=== PATIENT | female | born 1945 | race African-American/Black ===

== ENCOUNTER 2016-07-14 09:52 | Emergency (ER) | payer OTHER ==
[~2016-07-14] VITALS: Ht 160 cm; Wt 76.2 kg
--- NOTE | ~2016-07-14 | EKG ---
[place] [address] [facility] [place] [address] ELECTROCARDIOGRAM REPORT Name: CHELSI KRISHNAN #: DEP NIKI Stevenson#: [id number] Admission: 07/14/16 Attend Phys: Discharge: 07/14/16 Date of : 41 Report #: [id number] THIS REPORT FOR: //name// [facility] ED Test Date: 2016-07-14 Test Time: 10:06:51 Pat Name: CHELSI MAE Department: Room: Gender: F Buildings And Grounds Director: DACIA : 1945 Requested By: Lori Meyers Order Number: [id number] MD: Valdemar Godinez Measurements Intervals [place] Rate: 71 P: 53 RI: 174 QRS: 0 QRSD: 90 T: 18 QT: 450 QTc: 490 Interpretive Statements Sinus rhythm Borderline T wave abnormalities Borderline prolonged QT interval No previous ECG available for comparison Electronically Signed On 07-15-2016 7:42:25 CDT by Valdemar Godinez [email or web address] <ELECTRONICALLY SIGNED> By: Valdemar Godinez MD, [facility] 07/15/16 0742 1006 1006 Valdemar Godinez MD, FACC /EPI
[~2016-07-14 09:52] MED LIST: ADULT LOW DOSE81 MG PO; AFRIN15 ML NS; ALEVE220 MG PO; AMLODIPINE BESYL5 MG PO; AMOXICILLIN 50500 M1 PO; ASPIRIN EC325 M1 PO; ATIVAN0.5 MG PO; ATORVASTATIN CA40 MG PO; BACTRIM DS TAB1 EACH PO; CIPROFLOXACIN500 M1 PO; CIPROFLOXACIN500 M3 PO; COLACE100 MG PO; FLEXERIL PO; IBUPROFEN 600600 M1 PO; IBUPROFEN 800800 M1 PO; KEFLEX500 MG PO; LISINOPRIL20 MG PO; LOVASTAT20 PO; MACROBID 100 M100 M1 PO; MEDROL DOSPAK21 TAB PO; MEDROLDOSEPACK PO; MOTION RELIEF25 MG PO; MULTIVITAMINS PO; NAPROSYN500 MG PO; NORCO 5-325 TA1 EACH PO; NORFLEX100 MG PO; NORVASC 5 MG TAB5 MG PO; PRILOSEC20 MG PO; SALINE NASAL SP30 ML NS; TUSSIONEX PENN473 ML PO; ULTRAM 50MG TAB50 MG PO; VALIUM2 MG PO; VALIUM5 MG PO; ZOFRAN ODT4 MG PO; ZPAK PO
[2016-07-14 10:32] LABS: ABSOLUTE NEUTROPHILS 2.9 thou/uL (1.4-8.2); EOSINOPHILS 2.8 % (0.0-3.0); HEMATOCRIT 34.6 % (37.0-47.0); HEMOGLOBIN 11.7 gm/dL (12.0-15.0); MCH 31.2 pg (26.0-34.0); MCHC 33.8 g/dL (28.0-37.0); MCV 92.4 fL (80.0-100.0); MONOCYTES 8.4 % (1.0-8.0); PLATELET COUNT 230 thou/uL (150-400); POLYS 43.8 % (36.0-66.0); RBC 3.75 mil/uL (4.20-5.00); RDW 14.1 % (10.5-14.5); WBC 6.6 thou/uL (4.0-11.0)
[2016-07-14 10:34] LABS: MANUAL DIFF NO
[2016-07-14 10:39] LABS: ANION GAP 7 mmol/L (7-16); BUN 11 mg/dL (7-18); CALCIUM 9.3 mg/dL (8.5-10.1); CHLORIDE 105 mmol/L (98-107); CO2 26 mmol/L (21-32); CREATININE 0.8 mg/dL (0.6-1.3); GLUCOSE 95 mg/dL (70-99); POTASSIUM 3.9 mmol/L (3.5-5.1); SODIUM 138 mmol/L (136-145)
[2016-07-14 10:47] LABS: TROPONIN-I < 0.04 ng/mL (<0.04-0.07)
[2016-07-14] MEDS ORDERED: PREDNISONE 20 M20 MG PO (11:14)
[2016-07-14] MEDS ORDERED: VENTOLIN HFA 1818 GM INH (11:14)
[2016-07-14] MEDS ORDERED: TESSALON PERLE100 MG PO (11:14)
== END 2016-07-14 11:39 | disposition home or self-care (01) ==
LOC: ER 09:52
PROVIDERS: Nurse Practitioner Family
DX: J40 Bronchitis, not specified as acute or chronic (principal); I10 Essential (primary) hypertension; E78.00 Pure hypercholesterolemia, unspecified; E11.9 Type 2 diabetes mellitus without complications; K21.9 Gastro-esophageal reflux disease without esophagitis; Z90.89 Acquired absence of other organs; Z88.5 Allergy status to narcotic agent; Z87.891 Personal history of nicotine dependence

== ENCOUNTER 2016-09-01 09:24 | Observation (INO) | payer OTHER ==
[~2016-09-01] VITALS: Ht 157.5 cm; Wt 81.1 kg
--- NOTE | ~2016-09-01 | EKG ---
[facility] [place] [address] ELECTROCARDIOGRAM REPORT Name: CHELSI KRISHNAN #: PRE M.R.#: [id number] Admission: Attend Phys: Discharge: Date of : 41 Report #: [id number] THIS REPORT FOR: //name// [facility] ED Test Date: 2016-09-01 Test Time: 09:28:52 Pat Name: CHELSI MAE Department: Room: Gender: F Sectionizer: FÁTIMA : 1945 Requested By: Sam Hernandez Order Number: [id number] MD: Measurements Intervals [place] Rate: 71 P: 40 [place]: 168 QRS: -11 QRSD: 90 T: 12 QT: 398 QTc: 433 Interpretive Statements Sinus rhythm LVH by voltage Compared to ECG 07/14/2016 10:06:51 Left ventricular hypertrophy now present T-wave abnormality no longer present [email or web address] By: 7 7 Lenora Cooley MD /EPI
[~2016-09-01 09:24] MED LIST changes: +PREDNISONE 20 M20 MG PO; +TESSALON PERLE100 MG PO; +VENTOLIN HFA 1818 GM INH
[2016-09-01 09:28] VITALS: BP 130/70
[2016-09-01 09:51] LABS: ABSOLUTE NEUTROPHILS 3.1 thou/uL (1.4-8.2); BASOPHILS 0.6 % (0.0-2.0); EOSINOPHILS 4.6 % (0.0-3.0); HEMOGLOBIN 12.4 gm/dL (12.0-15.0); LYMPHOCYTES 40.2 % (24.0-44.0); MCH 31.4 pg (26.0-34.0); MCHC 33.6 g/dL (28.0-37.0); MCV 93.5 fL (80.0-100.0); PLATELET COUNT 264 thou/uL (150-400); POLYS 45.6 % (36.0-66.0); RBC 3.96 mil/uL (4.20-5.00); RDW 14.8 % (10.5-14.5); WBC 6.7 thou/uL (4.0-11.0)
[2016-09-01 09:54] LABS: ANION GAP 7 mmol/L (7-16); BUN 12 mg/dL (7-18); CALCIUM 9.6 mg/dL (8.5-10.1); CHLORIDE 103 mmol/L (98-107); CO2 28 mmol/L (21-32); CREATININE 0.7 mg/dL (0.6-1.0); GLUCOSE 94 mg/dL (74-106); MANUAL DIFF NO; POTASSIUM 3.9 mmol/L (3.5-5.1); SODIUM 138 mmol/L (136-145)
[2016-09-01 10:01] LABS: APTT 23.6 Seconds (24.5-32.8); PROTIME 10.5 Seconds (9.3-11.4)
[2016-09-01 10:05] LABS: ALBUMIN 3.9 g/dL (3.4-5.0); ALKALINE PHOSPHATASE 137 U/L (46-116); NT-PRO BRAIN NAT PEPTIDE 33 pg/mL (<300); SGOT 22 U/L (15-37); SGPT 23 U/L (30-65); TOTAL BILIRUBIN 0.7 mg/dL (<0.1-1.0); TOTAL PROTEIN 7.2 g/dL (6.4-8.2); TROPONIN-I < 0.04 ng/mL (<0.04-0.07)
[2016-09-01] MEDS ORDERED: NITROGLYCERIN0.4 MG SUBLING (10:33)
[2016-09-01 11:42] VITALS: BP 134/67
[2016-09-01 12:17] VITALS: BP 122/69
[2016-09-01] MEDS ORDERED: ASPIR 8181 MG PO (12:30)
[2016-09-01 16:38] VITALS: BP 102/58
[2016-09-01 19:37] VITALS: BP 104/57
[2016-09-02 03:52] VITALS: BP 120/67
[2016-09-02 07:20] VITALS: BP 128/68
[2016-09-02 11:05] VITALS: BP 110/71
[2016-09-02 11:07] LABS: URINE BILIRUBIN NEGATIVE (Negative); URINE BLOOD 1+ (Negative); URINE COLOR YELLOW; URINE GLUCOSE-RANDOM* NEGATIVE (Negative); URINE KETONES NEGATIVE (Negative); URINE LEUKOCYTES-REFLEX NEGATIVE (Negative); URINE PROTEIN (DIPSTICK) NEGATIVE (Negative); URINE SPECIFIC GRAVITY 1.015 (1.003-1.035)
[2016-09-02 11:22] LABS: CASTS None Seen /LPF (None Seen); CRYSTALS None Seen /LPF (None Seen); SQUAMOUS 0-3 Few /LPF (0-3)
[2016-09-02 11:23] LABS: URINE RBC 0-2 Rare /HPF (0-2); URINE WBC-REFLEX 0-5 Rare /HPF (0-5)
[2016-09-02 14:02] VITALS: BP 110/71
== END 2016-09-02 15:29 | disposition home or self-care (01) ==
LOC: ER 09:24 → 2N 11:02 → EROBS 11:02 → 2N 11:03 → EROBS 11:44 → 2N 11:44
PROVIDERS: Emergency Medicine; Hospitalist
DX: R07.89 Other chest pain (principal); I10 Essential (primary) hypertension; E78.5 Hyperlipidemia, unspecified; E78.00 Pure hypercholesterolemia, unspecified; R73.09 Other abnormal glucose; Z87.891 Personal history of nicotine dependence; Z79.52 Long term (current) use of systemic steroids; Z79.899 Other long term (current) drug therapy
CPT/HCPCS: 10081

== ENCOUNTER 2016-11-06 09:48 | Emergency (ER) | payer OTHER ==
[~2016-11-06] VITALS: Ht 160 cm; Wt 77.1 kg
[~2016-11-06 09:48] MED LIST changes: +ASPIR 8181 MG PO; +NITROGLYCERIN0.4 MG SUBLING
[2016-11-06 10:04] LABS: URINE BILIRUBIN NEGATIVE (Negative); URINE BLOOD 2+ (Negative); URINE COLOR YELLOW; URINE GLUCOSE-RANDOM* NEGATIVE (Negative); URINE KETONES NEGATIVE (Negative); URINE LEUKOCYTES-REFLEX 3+ (Negative); URINE PROTEIN (DIPSTICK) 1+ (Negative)
[2016-11-06 10:15] LABS: CASTS None Seen /LPF (None Seen); SQUAMOUS 0-3 Few /LPF (0-3)
[2016-11-06 10:16] LABS: CRYSTALS None Seen /LPF (None Seen); URINE RBC 3-10 Few /HPF (0-2); URINE WBC-REFLEX >25 Many /HPF (0-5); WBC CLUMPS Moderate (None Seen)
[2016-11-06 11:00] LABS: ABSOLUTE NEUTROPHILS 7.1 thou/uL (1.4-8.2); BASOPHILS 0.3 % (0.0-2.0); EOSINOPHILS 1.6 % (0.0-3.0); HEMATOCRIT 37.7 % (37.0-47.0); HEMOGLOBIN 12.6 gm/dL (12.0-15.0); MCH 31.6 pg (26.0-34.0); MCHC 33.4 g/dL (28.0-37.0); MCV 94.6 fL (80.0-100.0); MONOCYTES 8.3 % (1.0-8.0); PLATELET COUNT 291 thou/uL (150-400); POLYS 63.8 % (36.0-66.0); RBC 3.98 mil/uL (4.20-5.00); RDW 14.5 % (10.5-14.5); WBC 11.1 thou/uL (4.0-11.0)
[2016-11-06 11:05] LABS: MANUAL DIFF NO
[2016-11-06] MEDS ORDERED: APAP500 PO (11:08)
[2016-11-06] MEDS ORDERED: CEFDINIR300 MG PO (11:08)
[2016-11-06 11:52] LABS: CALCIUM 9.4 mg/dL (8.5-10.1); CREATININE 0.9 mg/dL (0.6-1.0); POTASSIUM 3.6 mmol/L (3.5-5.1)
== END 2016-11-06 12:47 | disposition home or self-care (01) ==
LOC: ER 09:48
PROVIDERS: Emergency Medicine
DX: N39.0 Urinary tract infection, site not specified (principal); I10 Essential (primary) hypertension; K21.9 Gastro-esophageal reflux disease without esophagitis; E78.00 Pure hypercholesterolemia, unspecified; E11.9 Type 2 diabetes mellitus without complications; Z98.890 Other specified postprocedural states; Z88.5 Allergy status to narcotic agent; Z87.891 Personal history of nicotine dependence

== ENCOUNTER 2017-01-20 23:32 | Emergency (ER) | payer OTHER ==
[~2017-01-20] VITALS: Ht 157.5 cm; Wt 77.1 kg
[~2017-01-20 23:32] MED LIST changes: +APAP500 PO; +CEFDINIR300 MG PO
[2017-01-21 00:01] LABS: URINE BILIRUBIN NEGATIVE (Negative); URINE BLOOD 2+ (Negative); URINE COLOR YELLOW; URINE GLUCOSE-RANDOM* NEGATIVE (Negative); URINE KETONES TRACE (Negative); URINE PROTEIN (DIPSTICK) 1+ (Negative); URINE UROBILINOGEN 0.2 E.U./dl (0.2-1.0)
[2017-01-21 00:02] LABS: URINE LEUKOCYTES-REFLEX 2+ (Negative)
[2017-01-21 00:08] LABS: CASTS None Seen /LPF (None Seen); CRYSTALS None Seen /LPF (None Seen); SQUAMOUS 0-3 Few /LPF (0-3); TRANSITIONAL EPITHEL CELL 4-10 Moderate /LPF (None Seen); URINE RBC 3-10 Few /HPF (0-2)
[2017-01-21] MEDS ORDERED: KEFLEX500 MG PO (00:09)
== END 2017-01-21 00:49 | disposition home or self-care (01) ==
LOC: ER 23:32
PROVIDERS: Emergency Medicine
DX: N39.0 Urinary tract infection, site not specified (principal); I10 Essential (primary) hypertension; E78.00 Pure hypercholesterolemia, unspecified; K21.9 Gastro-esophageal reflux disease without esophagitis; Z88.5 Allergy status to narcotic agent; Z87.891 Personal history of nicotine dependence; Z98.890 Other specified postprocedural states

== ENCOUNTER 2017-06-08 22:26 | Emergency (ER) | payer OTHER ==
[~2017-06-08] VITALS: Ht 157.5 cm; Wt 74.8 kg
[2017-06-08 22:33] VITALS: BP 125/71
[2017-06-08 22:57] LABS: URINE BILIRUBIN NEGATIVE (Negative); URINE BLOOD 2+ (Negative); URINE CLARITY CLEAR; URINE COLOR YELLOW; URINE GLUCOSE-RANDOM* NEGATIVE (Negative); URINE KETONES NEGATIVE (Negative); URINE NITRITE-REFLEX NEGATIVE (Negative); URINE PROTEIN (DIPSTICK) NEGATIVE (Negative); URINE SPECIFIC GRAVITY 1.015 (1.005-1.035); URINE UROBILINOGEN 0.2 E.U./dl (0.2-1.0)
[2017-06-08 23:09] LABS: URINE LEUKOCYTES-REFLEX TRACE (Negative)
[2017-06-08 23:18] LABS: CASTS None Seen /LPF (None Seen); MUCUS None Seen strn/LPF (None Seen); SQUAMOUS None Seen /LPF (0-3)
[2017-06-08 23:19] LABS: BACTERIA-REFLEX 1-9 Few /HPF (None Seen); CRYSTALS None Seen /LPF (None Seen); URINE RBC 0-2 Rare /HPF (0-2); URINE WBC-REFLEX 0-5 Rare /HPF (0-5)
[2017-06-08] MEDS ORDERED: KEFLEX500 M1 PO (23:42)
[2017-06-08] MEDS ORDERED: PYRIDIUM200 MG PO (23:56)
[2017-12-01] MEDS ORDERED: AUGMENTIN 875-1 EACH PO (06:28)
== END 2017-06-09 00:06 | disposition home or self-care (01) ==
LOC: ER 22:26
PROVIDERS: Emergency Medicine
DX: N39.0 Urinary tract infection, site not specified (principal); I10 Essential (primary) hypertension; E78.00 Pure hypercholesterolemia, unspecified; K21.9 Gastro-esophageal reflux disease without esophagitis; Z87.891 Personal history of nicotine dependence; Z88.5 Allergy status to narcotic agent

== ENCOUNTER 2017-07-30 02:06 | Emergency (ER) | payer OTHER ==
[~2017-07-30] VITALS: Ht 160 cm; Wt 72.6 kg
[~2017-07-30 02:06] MED LIST changes: +KEFLEX500 M1 PO; +PYRIDIUM200 MG PO
[2017-07-30 02:48] LABS: URINE BILIRUBIN NEGATIVE (Negative); URINE BLOOD 1+ (Negative); URINE CLARITY CLEAR; URINE COLOR YELLOW; URINE GLUCOSE-RANDOM* NEGATIVE (Negative); URINE KETONES NEGATIVE (Negative); URINE NITRITE-REFLEX NEGATIVE (Negative); URINE PROTEIN (DIPSTICK) TRACE (Negative); URINE SPECIFIC GRAVITY 1.015 (1.005-1.035)
[2017-07-30] MEDS ORDERED: LISINOPRIL5 MG PO (02:50)
[2017-07-30 02:54] LABS: URINE LEUKOCYTES-REFLEX 1+ (Negative)
[2017-07-30 03:05] LABS: SQUAMOUS 0-3 Few /LPF (0-3); URINE RBC 3-10 Few /HPF (0-2); URINE WBC-REFLEX 0-5 Rare /HPF (0-5)
[2017-07-30 03:06] LABS: BACTERIA-REFLEX 1-9 Few /HPF (None Seen); CASTS None Seen /LPF (None Seen); CRYSTALS None Seen /LPF (None Seen); WBC CLUMPS Rare (None Seen)
[2017-07-30 03:48] LABS: BASOPHILS 0.5 % (0.0-2.0); EOSINOPHILS 2.1 % (0.0-3.0); HEMATOCRIT 35.7 % (37.0-47.0); HEMOGLOBIN 11.9 gm/dL (12.0-15.0); LYMPHOCYTES 31.4 % (24.0-44.0); MCH 31.8 pg (26.0-34.0); MCHC 33.4 g/dL (28.0-37.0); MCV 95.4 fL (80.0-100.0); MONOCYTES 8.9 % (1.0-8.0); PLATELET COUNT 256 thou/uL (150-400); POLYS 57.1 % (36.0-66.0); RBC 3.74 mil/uL (4.20-5.00); RDW 14.5 % (10.5-14.5); WBC 7.1 thou/uL (4.0-11.0)
[2017-07-30 03:55] LABS: CALCIUM 9.6 mg/dL (8.5-10.1); CREATININE 0.9 mg/dL (0.6-1.0); POTASSIUM 3.7 mmol/L (3.5-5.1)
[2017-07-30] MEDS ORDERED: KEFLEX500 M1 PO (04:32)
== END 2017-07-30 05:13 | disposition home or self-care (01) ==
LOC: ER 02:06
PROVIDERS: Emergency Medicine
DX: N39.0 Urinary tract infection, site not specified (principal); I10 Essential (primary) hypertension; E78.00 Pure hypercholesterolemia, unspecified; K21.9 Gastro-esophageal reflux disease without esophagitis; E11.9 Type 2 diabetes mellitus without complications; Z87.891 Personal history of nicotine dependence; Z88.5 Allergy status to narcotic agent

== ENCOUNTER 2017-09-12 13:53 | Emergency (ER) | payer OTHER ==
[~2017-09-12] VITALS: Ht 157.5 cm; Wt 72.6 kg
[~2017-09-12 13:53] MED LIST changes: +LISINOPRIL5 MG PO
[2017-09-12 14:09] LABS: URINE BILIRUBIN NEGATIVE (Negative); URINE BLOOD 2+ (Negative); URINE CLARITY CLEAR; URINE COLOR YELLOW; URINE GLUCOSE-RANDOM* NEGATIVE (Negative); URINE KETONES NEGATIVE (Negative); URINE LEUKOCYTES 2+ (Negative); URINE NITRITE NEGATIVE (Negative); URINE PROTEIN (DIPSTICK) 1+ (Negative); URINE SPECIFIC GRAVITY 1.025 (1.005-1.035)
[2017-09-12 14:25] LABS: CASTS None Seen /LPF (None Seen); CRYSTALS None Seen /LPF (None Seen); SQUAMOUS 4-10 Moderate /LPF (0-3)
[2017-09-12 14:28] LABS: BACTERIA >30 Many /HPF (None Seen); URINE RBC 0-2 Rare /HPF (0-2)
[2017-09-12] MEDS ORDERED: CEFUROXIME250 MG PO (14:30)
[2017-09-13] MEDS ORDERED: CEFUROXIME250 MG PO (21:32)
[2017-09-13] MEDS ORDERED: ZOFRAN ODT8 MG PO (22:40)
[2017-09-13] MEDS ORDERED: AMOXICILLIN 50500 M1 PO (22:40)
== END 2017-09-12 14:52 | disposition home or self-care (01) ==
LOC: ER 13:53
PROVIDERS: Emergency Medicine
DX: N39.0 Urinary tract infection, site not specified (principal); I10 Essential (primary) hypertension; E11.9 Type 2 diabetes mellitus without complications; E78.00 Pure hypercholesterolemia, unspecified; K21.9 Gastro-esophageal reflux disease without esophagitis; Z90.89 Acquired absence of other organs; Z87.440 Personal history of urinary (tract) infections; Z88.5 Allergy status to narcotic agent; Z87.891 Personal history of nicotine dependence

== ENCOUNTER 2017-09-13 20:31 | Emergency (ER) | payer OTHER ==
[~2017-09-13] VITALS: Ht 157.5 cm; Wt 74.8 kg
--- NOTE | ~2017-09-13 | EKG ---
[place] [address] [facility] [place] [address] ELECTROCARDIOGRAM REPORT Name: CHELSI KRISHNAN #: DEP M.RJulianna#: [id number] Admission: 09/13/17 Attend Phys: Discharge: 09/13/17 Date of : 41 Report #: [id number] THIS REPORT FOR: //name// [facility] ED Test Date: 2017-09-13 Test Time: 21:17:36 Pat Name: CHELSI MAE Department: Room: Gender: F Regulatory Affairs Coordinator: EDGAR : 1945 Requested By: Sam Hernandez Order Number: [id number] MD: Valdemar Godinez Measurements Intervals [place] Rate: 77 P: 47 [place]: 164 QRS: -12 QRSD: 80 T: 19 QT: 383 QTc: 434 Interpretive Statements Sinus rhythm Nonspecific T wave abnormality Baseline wander in lead(s) V3 Compared to ECG 09/01/2016 09:28:52 No significant change was found Electronically Signed On 09-14-2017 8:11:25 CDT by Valdemar Godinez [email or web address] <ELECTRONICALLY SIGNED> By: Valdemar Godinez MD, [facility] 09/14/17 0811 16 16 Valdemar Godinez MD, [facility] /EPI
[~2017-09-13 20:31] MED LIST changes: +CEFUROXIME250 MG PO
[2017-09-13] MEDS ORDERED: CEFUROXIME250 MG PO (21:32)
[2017-09-13 21:53] LABS: ABSOLUTE NEUTROPHILS 3.2 thou/uL (1.4-8.2); BASOPHILS 0.6 % (0.0-2.0); EOSINOPHILS 1.9 % (0.0-3.0); HEMATOCRIT 38.3 % (37.0-47.0); HEMOGLOBIN 12.9 gm/dL (12.0-15.0); MCH 32.2 pg (26.0-34.0); MCHC 33.8 g/dL (28.0-37.0); MCV 95.2 fL (80.0-100.0); MONOCYTES 10.5 % (1.0-8.0); PLATELET COUNT 252 thou/uL (150-400); RBC 4.02 mil/uL (4.20-5.00); RDW 14.6 % (10.5-14.5); WBC 6.3 thou/uL (4.0-11.0)
[2017-09-13 21:58] LABS: SODIUM 137 mmol/L (136-145)
[2017-09-13 21:59] LABS: ANION GAP 6 mmol/L (7-16); BUN 11 mg/dL (7-18); CALCIUM 9.3 mg/dL (8.5-10.1); CHLORIDE 103 mmol/L (98-107); CO2 28 mmol/L (21-32); CREATININE 0.8 mg/dL (0.6-1.0); GLUCOSE 100 mg/dL (74-106); POTASSIUM 3.4 mmol/L (3.5-5.1)
[2017-09-13 22:07] LABS: ALBUMIN 3.9 g/dL (3.4-5.0); LIPASE 109 U/L (73-393); SGOT 19 U/L (15-37); SGPT 28 U/L (30-65); TOTAL BILIRUBIN 0.4 mg/dL (<0.1-1.0); TOTAL PROTEIN 7.2 g/dL (6.4-8.2); TROPONIN-I < 0.04 ng/mL (<0.06)
[2017-09-13] MEDS ORDERED: AMOXICILLIN 50500 M1 PO (22:40)
[2017-09-13] MEDS ORDERED: ZOFRAN ODT8 MG PO (22:40)
[2017-09-13 22:51] LABS: URINE BILIRUBIN NEGATIVE (Negative); URINE BLOOD 2+ (Negative); URINE CLARITY CLEAR; URINE COLOR YELLOW; URINE GLUCOSE-RANDOM* NEGATIVE (Negative); URINE KETONES NEGATIVE (Negative); URINE LEUKOCYTES-REFLEX NEGATIVE (Negative); URINE NITRITE-REFLEX NEGATIVE (Negative); URINE PROTEIN (DIPSTICK) NEGATIVE (Negative); URINE SPECIFIC GRAVITY <= 1.005 (1.005-1.035); URINE UROBILINOGEN 0.2 E.U./dl (0.2-1.0)
[2017-09-13 23:09] LABS: CASTS None Seen /LPF (None Seen); MUCUS None Seen strn/LPF (None Seen); SQUAMOUS None Seen /LPF (0-3)
[2017-09-13 23:10] LABS: BACTERIA-REFLEX None Seen /HPF (None Seen); CRYSTALS None Seen /LPF (None Seen); URINE RBC 0-2 Rare /HPF (0-2); URINE WBC-REFLEX None Seen /HPF (0-5)
== END 2017-09-13 23:45 | disposition home or self-care (01) ==
LOC: ER 20:31
PROVIDERS: Emergency Medicine
DX: R19.7 Diarrhea, unspecified (principal); R11.2 Nausea with vomiting, unspecified; N39.0 Urinary tract infection, site not specified; I10 Essential (primary) hypertension; E78.00 Pure hypercholesterolemia, unspecified; K21.9 Gastro-esophageal reflux disease without esophagitis; Z87.891 Personal history of nicotine dependence; Z88.5 Allergy status to narcotic agent

== ENCOUNTER 2017-11-13 06:49 | Inpatient (IN) | payer OTHER ==
[~2017-11-13] VITALS: Ht 157.5 cm; Wt 72.6 kg
--- NOTE | ~2017-11-13 | 2DMMODE ---
[facility] [address] [facility] [employer] [place] [address] 2 D/M-MODE ECHOCARDIOGRAM Name: CHELSI KRISHNAN #: 451-P ADM IN M.R.#: [id number] Admission: 11/13/17 Attend Phys: Lola Wilburn, Discharge: Date of : 41 Date of Service: 11/16/17 1156 Report #: [id number] THIS REPORT FOR: //name// APPROVED REPORT Study performed: 11/16/2017 08:16:12 EXAM: Comprehensive 2D, Doppler, and color-flow Echocardiogram Patient Location: Bedside Room #: 451 Status: routine BSA: 1.25 BP: 122/66 mmHg Other Information Study Quality: Good/ incomplete, patient taken to photo lab specialist Indications Chest Pain Hypertension/HDD 2D Dimensions RVDd: 39.39 mm LVEF(%): 60.17 (>50%) IVSd: 12.27 (7-11mm) LVOT Diam: 22.15 (18-24mm) LVDd: 42.00 mm PWd: 11.57 (7-11mm) Ascending Ao: 32.11 (22-36mm) LVDs: 28.66 (25-40mm) Aortic Root: 28.75 mm Calvillo's LVEF: 60.17 % Volumes Left Atrial Volume (Systole) Single Plane 4CH: 31.60 mL Mitral Valve E/A Ratio: 0.9 MV Decel. Time: 134.57 ms MV E Max Wade.: 0.87 m/s MV A Wade.: 0.94 m/s MV PHT: 39.03 ms IVRT: 124.57 ms Pulmonary Valve [facility] [address] [place] [address] 2 D/M-MODE ECHOCARDIOGRAM Name: CHELSI KRISHNAN #: 451-P ADM IN M.R.#: [id number] Admission: 11/13/17 Attend Phys: Lola Wilburn, Discharge: Date of : 41 Date of Service: 11/16/17 1156 Report #: [id number] PV Peak Wade.: 1.12 m/s PV Peak Gr.: 5.06 mmHg Pulmonary Vein P Vein S: 0.73 m/s P Vein A: 0.35 m/s P Vein D: 0.57 m/s P Vein A Dur.: 152.2 msec P Vein S/D Ratio: 1.28 Tricuspid Valve TR Peak Wade.: 2.60 m/s TR Peak Gr.: 27.02 mmHg Left Ventricle The left ventricle is normal size. Mild concentric left ventricular hypertrophy. The left ventricular systolic function is normal. The left ventricular ejection fraction is within the normal range. LVEF is 60-65%. Mild diastolic dysfunction is present (impaired relaxation pattern). Right Ventricle The right ventricle is normal size. The right ventricular systolic function is normal. Atria The left atrium size is normal. The right atrium size is normal. Aortic Valve The aortic valve is normal in structure. Mitral Valve The mitral valve is normal in structure. Trace mitral regurgitation. No evidence of mitral valve stenosis. Tricuspid Valve The tricuspid valve is normal in structure. Trace to mild tricuspid regurgitation. PAP is estimated at 27 mmHg + estimated RA pressure Pulmonic Valve The pulmonary valve is normal in structure. Trace pulmonic regurgitation. Great Vessels The aortic root is normal in size. Pericardium [facility] [address] [place] [address] 2 D/M-MODE ECHOCARDIOGRAM Name: CHELSI KRISHNAN #: 451-P ADM IN M.R.#: [id number] Admission: 11/13/17 Attend Phys: Lola Wilburn, Discharge: Date of : 41 Date of Service: 11/16/17 1156 Report #: [id number] There is no pericardial effusion. <Conclusion> The left ventricle is normal size. Mild concentric left ventricular hypertrophy. The left ventricular systolic function is normal. Mild diastolic dysfunction is present (impaired relaxation pattern). The right ventricle is normal size. The left atrium size is normal. The aortic valve is normal in structure. Trace mitral regurgitation. Trace to mild tricuspid regurgitation. PAP is estimated at 27 mmHg + estimated RA pressure There is no pericardial effusion. <ELECTRONICALLY SIGNED> By: Samy Maharaj MD 11/16/17 1156 1156 1156 Samy Maharaj MD /INF
--- NOTE | ~2017-11-13 | EKG ---
[place] [address] [facility] [place] [address] ELECTROCARDIOGRAM REPORT Name: CHELSI KRISHNAN #: 451-P ADM IN M.R.#: [id number] Admission: 11/13/17 Attend Phys: Lola Wilburn MD Discharge: Date of : 41 Report #: [id number] THIS REPORT FOR: //name// [facility] ED Test Date: 2017-11-13 Test Time: 06:58:10 Pat Name: CHELSI MAE Department: Room: Gender: F Transitional Care Nurse: cweipapi : 1945 Requested By: Jerson Adames Order Number: [id number] MD: Valdemar Godinez Measurements Intervals [place] Rate: 85 P: 49 DC: 161 QRS: -15 QRSD: 97 T: 29 QT: 387 QTc: 461 Interpretive Statements Sinus rhythm Nonspecific ST segment abnormality Compared to ECG 09/13/2017 21:17:36 No significant change was found Electronically Signed On 11-15-2017 8:01:32 CDT by Valdemar Godinez [email or web address] <ELECTRONICALLY SIGNED> By: Valdemar Godinez MD, [facility] 11/15/17 0801 0658 0658 Valdemar Godinez MD, [facility] /EPI
--- NOTE | ~2017-11-13 | HC ---
[facility] [place] [address] CONSULTATION Name: CHELSI KRISHNANALEJOJAREKRenato #: 451-P ADM IN M.R.#: [id number] Admission: 11/13/17 Attend Phys: Lola Wilburn MD Discharge: Date of : 41 Report #: [id number] THIS REPORT FOR: //name// CC: Lola Maria DATE OF SERVICE: 11/16/2017 Cardiology Consultation INDICATION: Chest pain. HISTORY OF PRESENT ILLNESS: This is a 72-year-old female with a history of hypertension, hypercholesterolemia and diet-controlled diabetes mellitus, presenting with chest pains. On the day of admission, she describes a discomfort on the left side of her chest. It resolved and then returned several hours later. It was not associated with any dyspnea or diaphoresis. There was no history of fever, chills or congestion. The initial ECG and troponin levels were unremarkable. She did undergo a pharmacologic nuclear stress test. There is evidence for ischemia in the distal anteroseptal region. Transient ischemic dilatation is also evident. This is suggestive for multivessel disease. PAST MEDICAL HISTORY: Hypertension, hypercholesterolemia, diabetes mellitus, GERD. MEDICATIONS: Include lisinopril, atorvastatin, omeprazole and amlodipine. ALLERGIES: INCLUDE CODEINE. SOCIAL HISTORY: Negative tobacco use. FAMILY HISTORY: Negative for premature CAD. REVIEW OF SYSTEMS: A full 10-point review of systems performed. Only the pertinent positives and negatives are described in the HPI. PHYSICAL EXAMINATION: VITAL SIGNS: Stable. GENERAL APPEARANCE: A well-developed, well-nourished female in no acute distress. HEENT: Normocephalic, atraumatic. NECK: Supple. LUNGS: Clear to auscultation. CARDIAC: Regular rate and rhythm, S1, S2 positive. ABDOMEN: Soft, nontender. [facility] [address] [place] [address] CONSULTATION Name: CHELSI KRISHNAN #: 451-P ADM IN M.R.#: [id number] Admission: 11/13/17 Attend Phys: Lola Wilburn MD Discharge: Date of : 41 Report #: [id number] EXTREMITIES: No major joint deformities, no cyanosis, no edema. NEUROLOGIC: Alert and oriented times 3. LABORATORY VALUES: ECG reveals sinus rhythm, nonspecific finding. IMPRESSION AND PLAN: 1. Unstable angina, abnormal nuclear stress test. We discussed the sensitivity and limitation of nuclear stress testing. Her symptoms having given her risk factors and persistent symptoms, we discussed the pros and cons of a cardiac catheterization. The patient understands and wishes to proceed. All questions were answered. 2. Hypertension. The blood pressure is stable on the current regimen. 3. Hypercholesterolemia, continue with statin therapy. <ELECTRONICALLY SIGNED> By: Samy Maharaj MD 11/17/17 1006 0855 0909 Samy Maharaj MD /carlos
--- NOTE | ~2017-11-13 | CATHLAB ---
[facility] [address] [place] [address] INVASIVE PROCEDURE REPORT Name: CHELSI KRISHNAN #: 451-P ADM IN M.R.#: [id number] Admission: 11/13/17 Attend Phys: Lola Wilburn, Discharge: Date of : 41 Date of Service: 11/16/17 1432 Report #: [id number] THIS REPORT FOR: //name// APPROVED REPORT Study performed: 11/16/2017 09:07:47 Patient Details Patient Status: In-Patient Room #: The patient is a 72 year-old female Event Personnel Samy Maharaj Geomagnetician, Fabricio Menendez RN RN, Dylan Mendoza RN, Vladimir De La Vega [place], Christine RTPete Monitor Procedures Performed Art Access - R femoral artery* Left Heart Cath w/or w/o Coronaries [id number] [facility] [address] Initial Mod Sed Same Phys/QHP Gr5y 229269 Hemostasis with Manual pressure Indication Positive stress test, Chest pain Risk Factors HypercholesterolemiaPhysical Activity, Hypertension, Diabetes Procedure Narrative The patient was brought urgently to the Cardiac Catheterization Laboratory and was prepped and draped in a sterile manner. The Right Groin^ was infiltrated with 1% Lidocaine subcutaneous anesthesia. A PINNACLE 4FR Sheath #[id number] sheath was inserted into the RFA^. Coronary angiography was performed using coronary diagnostic catheters. The right coronary system was accessed and visualized with a JR 4 catheter. The left coronary system was accessed and visualized with a JL 4 catheter. The left ventricle was accessed and visualized with a Pigtail catheter. Left ventricular/Aortic Valve gradient assessed via catheter pullback. Left ventriculogram was performed in COX projection. Hemostasis was obtained with manual pressure following sheath removal without any complications. The patient tolerated the procedure well and there were no complications associated with the procedure. There was no hematoma. Intraoperative Conscious Sedation Sedation start time: 09:08 Case end Time: [facility] [place] [place] [address] INVASIVE PROCEDURE REPORT Name: CHELSI KRISHNAN #: 451-P ADM IN M.R.#: [id number] Admission: 11/13/17 Attend Phys: Lola Wilburn, Discharge: Date of : 41 Date of Service: 11/16/17 1432 Report #: [id number] 09:25 Fentanyl 50 mcg Versed 1.5 mg Fluoro Time: 1.46 minutes Dose: DAP 1837.50 cGycm2 232 mGy Contrast Type and Amount: Omnipaque 65 ml Coronary Angiography The patient's coronary anatomy is right dominant. Diagnostic Cath Left Main Patent vessel, with no flow-limiting lesions. LAD There is mild diffuse disease with calcifications in the proximal and mid segments. Less than 20% stenotic. Diagonal 1 Patent vessel, with no flow-limiting lesions. Circumflex Patent vessel, with no flow-limiting lesions. OM1 Moderate size caliber vessel with mild disease proximally, less than 20%. OM2 Small-caliber vessel, with no flow-limiting lesions. Right Coronary Mild disease in the proximal segment, 20%. R PDA Small-caliber vessel, with no flow-limiting lesions. Left Ventriculography The left ventricle is normal in size with normal contractility. The left ventricular ejection fraction is estimated to be >55%. Hemodynamics The aortic pressure is 153/76 mmHg with a mean of 108 mmHg. The left ventricular pressure is 148/12 mmHg with a mean of mmHg. The left ventricular end diastolic pressure is 15 mmHg. Conclusion 1. Mild, nonobstructive CAD. 2. Normal LV systolic function. 3. Recommend aggressive risk factor management. <ELECTRONICALLY SIGNED> By: Samy Maharaj MD 11/16/17 1432 1432 143 Samy Maharaj MD /INF
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
[~2017-11-13 06:49] MED LIST changes: +ZOFRAN ODT8 MG PO
[2017-11-13 06:58] VITALS: BP 148/70
[2017-11-13 07:20] LABS: ABSOLUTE NEUTROPHILS 3.8 thou/uL (1.4-8.2); BASOPHILS 0.8 % (0.0-2.0); EOSINOPHILS 3.2 % (0.0-3.0); HEMOGLOBIN 12.1 gm/dL (12.0-15.0); LYMPHOCYTES 41.7 % (24.0-44.0); MCHC 33.6 g/dL (28.0-37.0); MCV 95.2 fL (80.0-100.0); MONOCYTES 7.7 % (1.0-8.0); PLATELET COUNT 267 thou/uL (150-400); POLYS 46.6 % (36.0-66.0); RBC 3.78 mil/uL (4.20-5.00); RDW 14.7 % (10.5-14.5)
[2017-11-13 07:53] LABS: ALBUMIN 3.5 g/dL (3.4-5.0); CALCIUM 8.5 mg/dL (8.5-10.1); CREATININE 0.8 mg/dL (0.6-1.0); POTASSIUM 3.6 mmol/L (3.5-5.1); TOTAL BILIRUBIN 0.4 mg/dL (<0.1-1.0); TOTAL PROTEIN 6.5 g/dL (6.4-8.2)
[2017-11-13 08:02] VITALS: BP 159/86
[2017-11-13 08:12] LABS: URINE BILIRUBIN NEGATIVE (Negative); URINE BLOOD 2+ (Negative); URINE CLARITY CLEAR; URINE COLOR YELLOW; URINE GLUCOSE-RANDOM* NEGATIVE (Negative); URINE KETONES NEGATIVE (Negative); URINE NITRITE-REFLEX NEGATIVE (Negative); URINE PROTEIN (DIPSTICK) NEGATIVE (Negative); URINE SPECIFIC GRAVITY 1.015 (1.005-1.035); URINE UROBILINOGEN 0.2 E.U./dl (0.2-1.0)
[2017-11-13 08:18] LABS: URINE LEUKOCYTES-REFLEX 1+ (Negative)
[2017-11-13 08:28] LABS: BACTERIA-REFLEX 1-9 Few /HPF (None Seen); CASTS None Seen /LPF (None Seen); CRYSTALS None Seen /LPF (None Seen); SQUAMOUS 0-3 Few /LPF (0-3); URINE RBC None Seen /HPF (0-2); URINE WBC-REFLEX 0-5 Rare /HPF (0-5)
[2017-11-13 09:42] VITALS: BP 145/69
[2017-11-13 10:10] VITALS: BP 126/57
[2017-11-13 15:12] VITALS: BP 106/48
[2017-11-13 19:40] VITALS: BP 106/52
[2017-11-14 04:33] VITALS: BP 116/63
[2017-11-14 07:29] VITALS: BP 126/65
[2017-11-14 16:11] VITALS: BP 115/55
[2017-11-14 19:08] VITALS: BP 110/50
[2017-11-15 04:40] VITALS: BP 121/64
[2017-11-15 06:55] LABS: CHOLESTEROL 122 mg/dL (<200); HDL CHOLESTEROL 41 mg/dL (>40); LDL CHOLESTEROL 55 mg/dL (<100); TRIGLYCERIDE 134 mg/dL (<150); VLDL 27 mg/dL (<40)
[2017-11-15 16:04] VITALS: BP 153/75
[2017-11-15 19:26] VITALS: BP 136/74
[2017-11-16] VITALS (10 sets, daily range): BP systolic 102–146; BP diastolic 54–73
[2017-11-17 03:48] VITALS: BP 110/61
[2017-11-17 05:31] LABS: HEMATOCRIT 33.9 % (37.0-47.0); HEMOGLOBIN 11.3 gm/dL (12.0-15.0); MCH 32.1 pg (26.0-34.0); MCHC 33.5 g/dL (28.0-37.0); RBC 3.53 mil/uL (4.20-5.00); RDW 14.9 % (10.5-14.5); WBC 7.1 thou/uL (4.0-11.0)
[2017-11-17 05:46] LABS: CREATININE 0.9 mg/dL (0.6-1.0); POTASSIUM 4.3 mmol/L (3.5-5.1)
[2017-11-17 08:05] VITALS: BP 111/62
[2017-11-17] MEDS ORDERED: ASPIRIN81 M2 PO (12:56)
[2017-11-17] MEDS ORDERED: TYLENOL325 MG PO (12:58)
[2017-11-17 13:08] VITALS: BP 111/62
== END 2017-11-17 14:00 | disposition home or self-care (01) | DRG 287 ==
LOC: ER 06:49 → 4W 08:03 → EROBS 08:03 → 4W 09:23
PROVIDERS: Emergency Medicine; Hospitalist; Internal Medicine Cardiovascular Disease
DX: I25.110 Atherosclerotic heart disease of native coronary artery with unstable angina pectoris (principal); I10 Essential (primary) hypertension; E11.9 Type 2 diabetes mellitus without complications; E78.00 Pure hypercholesterolemia, unspecified; F41.9 Anxiety disorder, unspecified; R74.8 Abnormal levels of other serum enzymes; M19.90 Unspecified osteoarthritis, unspecified site; K21.9 Gastro-esophageal reflux disease without esophagitis; Z79.899 Other long term (current) drug therapy; Z87.81 Personal history of (healed) traumatic fracture; Z87.828 Personal history of other (healed) physical injury and trauma; Z87.891 Personal history of nicotine dependence; Z88.8 Allergy status to other drugs, medicaments and biological substances; Z88.5 Allergy status to narcotic agent; Z82.49 Family history of ischemic heart disease and other diseases of the circulatory system
CPT/HCPCS: 10045

== ENCOUNTER 2018-04-17 13:03 | Emergency (ER) | payer OTHER ==
[~2018-04-17] VITALS: Ht 160 cm; Wt 74.8 kg
[~2018-04-17 13:03] MED LIST changes: +ASPIRIN81 M2 PO; +AUGMENTIN 875-1 EACH PO; +TYLENOL325 MG PO
[2018-04-17 14:20] LABS: ABSOLUTE NEUTROPHILS 3.5 thou/uL (1.4-8.2); BASOPHILS 1.3 % (0.0-2.0); EOSINOPHILS 3.3 % (0.0-3.0); HEMATOCRIT 35.3 % (37.0-47.0); HEMOGLOBIN 12.2 gm/dL (12.0-15.0); LYMPHOCYTES 37.2 % (24.0-44.0); MCH 32.9 pg (26.0-34.0); MCHC 34.5 g/dL (28.0-37.0); MCV 95.3 fL (80.0-100.0); MONOCYTES 7.6 % (1.0-8.0); PLATELET COUNT 295 thou/uL (150-400); POLYS 50.6 % (36.0-66.0); RBC 3.71 mil/uL (4.20-5.00); RDW 14.8 % (10.5-14.5); WBC 6.9 thou/uL (4.0-11.0)
[2018-04-17 14:29] LABS: CALCIUM 9.9 mg/dL (8.5-10.1); CREATININE 0.8 mg/dL (0.6-1.0)
[2018-04-17 14:34] LABS: ALBUMIN 4.1 g/dL (3.4-5.0); TOTAL BILIRUBIN 0.5 mg/dL (<0.1-1.0); TOTAL PROTEIN 7.6 g/dL (6.4-8.2)
[2018-04-17] MEDS ORDERED: NAPROSYN500 MG PO (15:31)
[2018-04-17 16:04] VITALS: BP 141/62
== END 2018-04-17 16:05 | disposition home or self-care (01) ==
LOC: ER 13:03
PROVIDERS: Physician Assistant
DX: M71.22 Synovial cyst of popliteal space [Baker], left knee (principal); M79.18 Myalgia, other site; E78.00 Pure hypercholesterolemia, unspecified; K21.9 Gastro-esophageal reflux disease without esophagitis; I10 Essential (primary) hypertension; M19.90 Unspecified osteoarthritis, unspecified site; E11.9 Type 2 diabetes mellitus without complications; Z87.891 Personal history of nicotine dependence; Z88.5 Allergy status to narcotic agent; Z88.8 Allergy status to other drugs, medicaments and biological substances; S00.81XA Abrasion of other part of head, initial encounter; W20.8XXA Other cause of strike by thrown, projected or falling object, initial encounter; Y93.89 Activity, other specified; Y92.89 Other specified places as the place of occurrence of the external cause; Y99.8 Other external cause status

== ENCOUNTER 2018-06-24 06:34 | Emergency (ER) | payer OTHER ==
[~2018-06-24] VITALS: Ht 157.5 cm; Wt 76.2 kg
[2018-06-24 08:46] LABS: BF NUCLEATED CELLS 69; BF RBC 327
[2018-06-24 08:47] LABS: CLARITY CLEAR; COLOR YELLOW; TOTAL VOLUME 3.5 mL
[2018-06-24 09:26] LABS: SOURCE KNEE JOINT
[2018-06-24 09:34] LABS: BF CRYSTALS No Crystals seen
[2018-06-24 09:37] LABS: SOURCE SYNOVIAL
[2018-06-24 09:55] VITALS: BP 143/70
[2018-06-24 10:23] LABS: BF MACROPHAGE 50; BF NEUTROPHILS 26
== END 2018-06-24 09:56 | disposition home or self-care (01) ==
LOC: ER 06:34
PROVIDERS: Student in an Organized Health Care Education/Training Program
DX: M17.12 Unilateral primary osteoarthritis, left knee (principal); E11.9 Type 2 diabetes mellitus without complications; E78.00 Pure hypercholesterolemia, unspecified; K21.9 Gastro-esophageal reflux disease without esophagitis; I10 Essential (primary) hypertension; Z87.891 Personal history of nicotine dependence; Z88.5 Allergy status to narcotic agent; Z88.1 Allergy status to other antibiotic agents; Z90.89 Acquired absence of other organs

== ENCOUNTER 2018-08-01 23:11 | Emergency (ER) | payer OTHER ==
[~2018-08-01] VITALS: Ht 160 cm; Wt 74.8 kg
[2018-08-01 23:20] LABS: URINE BILIRUBIN NEGATIVE (Negative); URINE BLOOD 2+ (Negative); URINE CLARITY CLEAR; URINE COLOR YELLOW; URINE GLUCOSE-RANDOM* NEGATIVE (Negative); URINE KETONES NEGATIVE (Negative); URINE NITRITE-REFLEX NEGATIVE (Negative); URINE PROTEIN (DIPSTICK) NEGATIVE (Negative); URINE SPECIFIC GRAVITY <= 1.005 (1.005-1.035); URINE UROBILINOGEN 0.2 E.U./dl (0.2-1.0)
[2018-08-01 23:26] LABS: URINE LEUKOCYTES-REFLEX 2+ (Negative)
[2018-08-01 23:36] LABS: BACTERIA-REFLEX 1-9 Few /HPF (None Seen); CASTS None Seen /LPF (None Seen); CRYSTALS None Seen /LPF (None Seen); MUCUS None Seen strn/LPF (None Seen); SQUAMOUS None Seen /LPF (0-3)
[2018-08-01 23:37] LABS: URINE RBC 3-10 Few /HPF (0-2); URINE WBC-REFLEX 6-15 Few /HPF (0-5)
[2018-08-02] MEDS ORDERED: PYRIDIUM200 MG PO (00:13)
[2018-08-02] MEDS ORDERED: MACROBID 100 M100 M2 PO (00:13)
[2018-08-02 00:38] VITALS: BP 132/78
== END 2018-08-02 00:38 | disposition home or self-care (01) ==
LOC: ER 23:11
PROVIDERS: Student in an Organized Health Care Education/Training Program
DX: N39.0 Urinary tract infection, site not specified (principal); E11.9 Type 2 diabetes mellitus without complications; E78.00 Pure hypercholesterolemia, unspecified; K21.9 Gastro-esophageal reflux disease without esophagitis; I10 Essential (primary) hypertension; M19.90 Unspecified osteoarthritis, unspecified site; Z87.891 Personal history of nicotine dependence; Z88.5 Allergy status to narcotic agent; Z88.1 Allergy status to other antibiotic agents; Z90.89 Acquired absence of other organs

== ENCOUNTER 2018-08-12 07:43 | Day surgery (SDC) | payer OTHER ==
[~2018-08-12] VITALS: Ht 160 cm; Wt 74.4 kg
[2018-08-12 07:15] VITALS: BP 122/66
[~2018-08-12 07:43] MED LIST changes: +ATIVAN1 MG PO; +GABAPENTIN 100100 MG PO; +IBUPROFEN200 MG PO; +MACROBID 100 M100 M2 PO
[2018-08-12 08:25] VITALS: BP 122/66
--- NOTE | 2018-08-13 07:37 | O ---
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 PROCEDURE: Left knee arthroscopy with partial medial meniscectomy and debridement of medial compartment and patellofemoral chondromalacia. SURGEON: Vladimir Whittington MD INDICATIONS: This still very active and fit and fully independent 73-year-old female has had moderate problems with bilateral knee pain. She underwent arthroscopic debridement on the right side several years ago with excellent clinical result. She now has similar symptoms on the left knee. Clinical findings are consistent with medial meniscus damage and mild chondromalacia. We have discussed the option of more aggressive measures such as total knee replacement given her advanced age; however, the clinical findings are rather mild and her subjective symptoms are only moderate. She and her family note that she had an excellent result after arthroscopic debridement on the opposite knee and are anxious to go ahead with that procedure on the left knee today. DESCRIPTION OF PROCEDURE: The patient was taken to the operating room where she was placed under general anesthesia. Prophylactic intravenous antibiotics were administered. The left knee was meticulously prepped and draped and a thigh tourniquet inflated to 300 mmHg. A lateral suprapatellar inflow cannula was placed and the knee was inflated with normal saline. The arthroscope and probe were introduced. The various compartments were sequentially visualized. The medial compartment did reveal moderate degenerative tearing of the medial meniscus extending to the mid medial aspect back to the posterior horn. There was a small parrot-beak shaped portion that was flipped down into the meniscal tibial recess, this was flipped back up into the joint and then debrided. The more irregular vertical and horizontal cleavage tears were trimmed back to a more smooth even outer margin, this left about the outer one-third of meniscus at the posterior and posterior medial corner. The more anterior portion of the meniscus was in better shape and did not require debridement. There was also grade 3 chondromalacia over much of the weightbearing surface of the [address] [address] OPERATIVE REPORT Name: SILVACHELSI ALEXANDER Room #: DEP [facility]#: [id number] Admission: 08/12/18 ������������������ Attend Phys: Vladimir Whittington MD Discharge: 08/12/18 ������������������ Date of : 41 Report #: [id number] femoral condyle. This was very gently smoothed removing only the loose and irregular delaminating cartilage leaving as much cartilage in place as possible. The corresponding surface on the medial tibial plateau was in better shape with only minor fissuring and grooving, only very limited debridement there was required. The rest of the knee was fairly normal. The intercondylar notch reveals the cruciate ligaments to be present and functioning nicely. The lateral compartment revealed much better cartilage on the lateral femoral condyle and the lateral tibial plateau. The lateral meniscus appears to be intact and stable, no debridement here was necessary. The patellofemoral articulation reveals only mild fissuring and grooving on both the femur and the trochlear region. This area was very gently debrided, but in general the cartilage is intact and stable. The suprapatellar pouch revealed minor synovial hypertrophy and a bit of minor cartilage debris, which was evacuated. No other abnormalities were identified. The knee was copiously irrigated and then all fluid removed. The knee was then injected with 80 mg of Depo-Medrol and 30 mL of 0.5% Marcaine with epinephrine. The puncture sites were closed with interrupted nylon suture. A sterile dressing was applied. The patient was awakened and returned to the recovery room in good condition. ��������������������������������������������� <ELECTRONICALLY SIGNED> ���������������������������������������� By: Vladimir Whittington MD ��������������������������������������������� 08/13/18 0737 0815 0836 Vladimir Whittington MD /nt
== END 2018-08-12 09:30 | disposition home or self-care (01) ==
LOC: OR 07:43 → TBA 07:44 → OR 07:48
DX: M23.222 Derangement of posterior horn of medial meniscus due to old tear or injury, left knee (principal); M94.262 Chondromalacia, left knee; Z87.891 Personal history of nicotine dependence; I10 Essential (primary) hypertension; E78.5 Hyperlipidemia, unspecified; Z98.890 Other specified postprocedural states; K21.9 Gastro-esophageal reflux disease without esophagitis; M19.90 Unspecified osteoarthritis, unspecified site; Z79.899 Other long term (current) drug therapy
CPT/HCPCS: 50010; 50101; 50405; 51038; 54170; 56526; 57103; 70005

== ENCOUNTER 2018-11-14 06:23 | Emergency (ER) | payer OTHER ==
[~2018-11-14] VITALS: Ht 160 cm; Wt 72.6 kg
[2018-11-14 08:24] VITALS: BP 134/87
== END 2018-11-14 08:40 | disposition home or self-care (01) ==
LOC: ER 06:23
DX: M25.562 Pain in left knee (principal); M25.462 Effusion, left knee; E78.5 Hyperlipidemia, unspecified; K21.9 Gastro-esophageal reflux disease without esophagitis; I10 Essential (primary) hypertension; M19.90 Unspecified osteoarthritis, unspecified site; Z87.891 Personal history of nicotine dependence; Z88.5 Allergy status to narcotic agent; Z88.1 Allergy status to other antibiotic agents; Z90.89 Acquired absence of other organs; Z95.5 Presence of coronary angioplasty implant and graft

== ENCOUNTER 2018-12-22 09:21 | Emergency (ER) | payer OTHER ==
[~2018-12-22] VITALS: Ht 160 cm; Wt 74.4 kg
[2018-12-22 10:16] LABS: ABSOLUTE NEUTROPHILS 2.9 thou/uL (1.4-8.2); BASOPHILS 0.9 % (0.0-2.0); EOSINOPHILS 2.9 % (0.0-3.0); HEMATOCRIT 32.2 % (37.0-47.0); HEMOGLOBIN 10.9 gm/dL (12.0-15.0); LYMPHOCYTES 33.4 % (24.0-44.0); MCH 32.8 pg (26.0-34.0); MCV 96.6 fL (80.0-100.0); MONOCYTES 9.2 % (1.0-8.0); PLATELET COUNT 279 thou/uL (150-400); POLYS 53.6 % (36.0-66.0); RBC 3.33 mil/uL (4.20-5.00); RDW 15.3 % (10.5-14.5); WBC 5.4 thou/uL (4.0-11.0)
[2018-12-22 10:23] LABS: URINE BILIRUBIN NEGATIVE (Negative); URINE BLOOD 2+ (Negative); URINE CLARITY CLEAR; URINE COLOR YELLOW; URINE GLUCOSE-RANDOM* NEGATIVE (Negative); URINE KETONES NEGATIVE (Negative); URINE LEUKOCYTES NEGATIVE (Negative); URINE NITRITE NEGATIVE (Negative); URINE PROTEIN (DIPSTICK) 1+ (Negative); URINE UROBILINOGEN 0.2 E.U./dl (0.2-1.0)
[2018-12-22 10:29] LABS: CALCIUM 9.9 mg/dL (8.5-10.1); CREATININE 0.7 mg/dL (0.6-1.0); POTASSIUM 3.8 mmol/L (3.5-5.1)
[2018-12-22 10:35] LABS: ALBUMIN 4.1 g/dL (3.4-5.0); TOTAL BILIRUBIN 0.5 mg/dL (<0.1-1.0); TOTAL PROTEIN 7.6 g/dL (6.4-8.2)
[2018-12-22 10:36] LABS: BACTERIA 1-9 Few /HPF (None Seen); CASTS None Seen /LPF (None Seen); CRYSTALS None Seen /LPF (None Seen); SQUAMOUS None Seen /LPF (0-3); URINE RBC 3-10 Few /HPF (0-2); URINE WBC None Seen /HPF (0-5)
[2018-12-22 10:36] LABS: MAGNESIUM 2.2 mg/dL (1.8-2.4); TROPONIN-I <0.06 ng/mL (<0.06)
[2018-12-22 12:26] VITALS: BP 130/68
--- NOTE | 2018-12-22 16:11 | EKG ---
[place] [address] [facility] [place] [address] ELECTROCARDIOGRAM REPORT Name: CHELSI KRISHNAN Room #: DEP [facility]#: [id number] Admission: 12/22/18 Attend Phys: Discharge: 12/22/18 Date of : 41 Report #: [id number] THIS REPORT FOR: //name// [facility] ED Test Date: 2018-12-22 Test Time: 09:54:45 Pat Name: CHELSI MAE Department: Room: Gender: F Rolled Seat Trimmer: renata : 1945 Requested By: Andrzej Acosta Order Number: [id number] MD: Valdemar Godinez Measurements Intervals [place] Rate: 80 P: 35 DE: 154 QRS: -17 QRSD: 90 T: 6 QT: 389 QTc: 449 Interpretive Statements Sinus rhythm Probable left atrial enlargement Left ventricular hypertrophy Nonspecific ST and T wave abnormality Compared to ECG 11/13/2017 06:58:10 No significant change was found Electronically Signed On 12-22-2018 16:11:26 CDT by Valdemar Godinez [email or web address] <ELECTRONICALLY SIGNED> By: Valdemar Godinez MD, [facility] 12/22/18 1611 [id number] Valdemar Godinez MD, [facility] /EPI
--- NOTE | 2018-12-22 16:16 | EKG ---
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 : 1945 Requested By: Andrzej Acosta Order Number: [id number] MD: Valdemar Godinez Measurements Intervals [place] Rate: 67 P: 7 DC: 169 QRS: -13 QRSD: 93 T: -13 QT: 434 QTc: 458 Interpretive Statements Sinus rhythm Nonspecific ST and T wave abnormality Compared to ECG 11/13/2017 06:58:10 No significant change was found Electronically Signed On 12-22-2018 16:16:23 CDT by Valdemar Godinez [email or web address] <ELECTRONICALLY SIGNED> By: Valdemar Godinez MD, [facility] 12/22/18 1616 1137 113 Valdemar Godinez MD, [facility] /EPI
== END 2018-12-22 12:26 | disposition home or self-care (01) ==
LOC: ER 09:21
PROVIDERS: Emergency Medicine
DX: M54.10 Radiculopathy, site unspecified (principal); E78.5 Hyperlipidemia, unspecified; K21.9 Gastro-esophageal reflux disease without esophagitis; I10 Essential (primary) hypertension; Z88.1 Allergy status to other antibiotic agents; Z88.5 Allergy status to narcotic agent; Z98.890 Other specified postprocedural states; M19.90 Unspecified osteoarthritis, unspecified site; Z95.5 Presence of coronary angioplasty implant and graft

== ENCOUNTER 2019-01-10 06:20 | Emergency (ER) | payer OTHER ==
[~2019-01-10] VITALS: Ht 160 cm; Wt 74.8 kg
[2019-01-10 06:21] VITALS: BP 132/72
[2019-01-10 06:48] LABS: URINE BILIRUBIN NEGATIVE (Negative); URINE BLOOD 2+ (Negative); URINE CLARITY HAZY; URINE COLOR YELLOW; URINE GLUCOSE-RANDOM* NEGATIVE (Negative); URINE KETONES NEGATIVE (Negative); URINE LEUKOCYTES-REFLEX 1+ (Negative); URINE NITRITE-REFLEX NEGATIVE (Negative); URINE PROTEIN (DIPSTICK) 1+ (Negative); URINE SPECIFIC GRAVITY 1.015 (1.005-1.035); URINE UROBILINOGEN 0.2 E.U./dl (0.2-1.0)
[2019-01-10 07:31] LABS: BACTERIA-REFLEX >30 Many /HPF (None Seen); CASTS None Seen /LPF (None Seen); CRYSTALS None Seen /LPF (None Seen); SQUAMOUS 0-3 Few /LPF (0-3); URINE RBC 3-10 Few /HPF (0-2)
[2019-01-10] MEDS ORDERED: MACROBID 100 M100 M1 PO (07:36)
[2019-01-10] MEDS ORDERED: PYRIDIUM100 M1 PO (07:36)
== END 2019-01-10 07:45 | disposition home or self-care (01) ==
LOC: ER 06:20
PROVIDERS: Emergency Medicine
DX: N39.0 Urinary tract infection, site not specified (principal); E78.5 Hyperlipidemia, unspecified; K21.9 Gastro-esophageal reflux disease without esophagitis; M19.90 Unspecified osteoarthritis, unspecified site; I10 Essential (primary) hypertension; Z87.891 Personal history of nicotine dependence; Z88.5 Allergy status to narcotic agent; Z88.1 Allergy status to other antibiotic agents; Z90.89 Acquired absence of other organs

== ENCOUNTER 2019-04-08 02:24 | Emergency (ER) | payer OTHER ==
[~2019-04-08] VITALS: Ht 160 cm; Wt 72.6 kg
[~2019-04-08 02:24] MED LIST changes: -ATORVASTATIN CA40 MG PO; +LIPITOR40 MG PO; +PYRIDIUM100 M1 PO
[2019-04-08] MEDS ORDERED: SERTRALINE HCL100 MG PO (03:14)
[2019-04-08] MEDS ORDERED: NEURONTIN100 MG PO (03:15)
[2019-04-08] MEDS ORDERED: PREDNISONE 20 M20 M1 PO (04:03)
[2019-04-08] MEDS ORDERED: VENTOLIN HFA INH8 GM INH (04:03)
[2019-04-08 04:19] VITALS: BP 137/61
== END 2019-04-08 04:15 | disposition home or self-care (01) ==
LOC: ER 02:24
DX: J40 Bronchitis, not specified as acute or chronic (principal); I10 Essential (primary) hypertension; E78.5 Hyperlipidemia, unspecified; K21.9 Gastro-esophageal reflux disease without esophagitis; M19.90 Unspecified osteoarthritis, unspecified site; Z90.49 Acquired absence of other specified parts of digestive tract; Z87.440 Personal history of urinary (tract) infections; Z95.5 Presence of coronary angioplasty implant and graft; Z87.891 Personal history of nicotine dependence; Z88.1 Allergy status to other antibiotic agents; Z88.6 Allergy status to analgesic agent

== ENCOUNTER 2019-04-14 05:18 | Emergency (ER) | payer OTHER ==
[~2019-04-14] VITALS: Ht 160 cm; Wt 72.6 kg
[~2019-04-14 05:18] MED LIST changes: +NEURONTIN100 MG PO; +PREDNISONE 20 M20 M1 PO; +SERTRALINE HCL100 MG PO; +VENTOLIN HFA INH8 GM INH
[2019-04-14] MEDS ORDERED: PREDNISONE 20 M20 MG PO (06:14)
[2019-04-14 06:29] VITALS: BP 132/93
== END 2019-04-14 06:41 | disposition home or self-care (01) ==
LOC: ER 05:18
DX: J06.9 Acute upper respiratory infection, unspecified (principal); I10 Essential (primary) hypertension; K21.9 Gastro-esophageal reflux disease without esophagitis; E78.5 Hyperlipidemia, unspecified; M19.90 Unspecified osteoarthritis, unspecified site; Z90.89 Acquired absence of other organs; Z95.2 Presence of prosthetic heart valve; Z88.5 Allergy status to narcotic agent; Z88.8 Allergy status to other drugs, medicaments and biological substances; Z87.891 Personal history of nicotine dependence

== ENCOUNTER 2019-04-28 09:22 | Emergency (ER) | payer OTHER ==
[~2019-04-28] VITALS: Ht 160 cm; Wt 72.6 kg
[2019-04-28] MEDS ORDERED: AZITHROMYCIN 2250 MG PO (09:51)
[2019-04-28] MEDS ORDERED: MELOXICAM15 MG PO (09:52)
[2019-04-28] MEDS ORDERED: BENZONATATE200 MG PO (09:53)
[2019-04-28 10:16] LABS: ABSOLUTE NEUTROPHILS 4.6 thou/uL (1.4-8.2); BASOPHILS 0.5 % (0.0-2.0); EOSINOPHILS 2.4 % (0.0-3.0); HEMATOCRIT 33.4 % (37.0-47.0); HEMOGLOBIN 10.9 gm/dL (12.0-15.0); LYMPHOCYTES 16.5 % (24.0-44.0); MCH 31.5 pg (26.0-34.0); MCHC 32.7 g/dL (28.0-37.0); MCV 96.4 fL (80.0-100.0); MONOCYTES 9.3 % (1.0-8.0); PLATELET COUNT 258 thou/uL (150-400); POLYS 71.3 % (36.0-66.0); RBC 3.47 mil/uL (4.20-5.00); RDW 15.9 % (10.5-14.5); WBC 6.4 thou/uL (4.0-11.0)
[2019-04-28 10:23] LABS: CALCIUM 10.5 mg/dL (8.5-10.1); CREATININE 0.8 mg/dL (0.6-1.0); POTASSIUM 3.8 mmol/L (3.5-5.1)
[2019-04-28 10:29] LABS: MAGNESIUM 1.9 mg/dL (1.8-2.4)
[2019-04-28] MEDS ORDERED: PROAIR HFA8.5 GM INH (11:33)
[2019-04-28 11:47] VITALS: BP 140/69
--- NOTE | 2019-04-28 13:47 | EKG ---
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 : 1945 Requested By: Charles Delgado Order Number: [id number] MD: Valdemar Godinez Measurements Intervals [place] Rate: 98 P: 45 MA: 149 QRS: -11 QRSD: 82 T: 31 QT: 328 QTc: 419 Interpretive Statements Sinus rhythm Early R-wave progression Left ventricular hypertrophy Compared to ECG 12/22/2018 11:37:56 Early R-wave progression is now present Electronically Signed On 04-28-2019 13:46:32 COOK HELPER [employer]AT by Valdemar Godinez [email or web address] <ELECTRONICALLY SIGNED> By: Valdemar Godinez MD, [facility] 04/28/19 1346 1003 1003 Valdemar Godinez MD, [facility] /EPI
== END 2019-04-28 11:48 | disposition home or self-care (01) ==
LOC: ER 09:22
PROVIDERS: Emergency Medicine
DX: M79.605 Pain in left leg (principal); M79.604 Pain in right leg; E78.5 Hyperlipidemia, unspecified; K21.9 Gastro-esophageal reflux disease without esophagitis; M19.90 Unspecified osteoarthritis, unspecified site; Z90.49 Acquired absence of other specified parts of digestive tract; Z87.440 Personal history of urinary (tract) infections; Z95.5 Presence of coronary angioplasty implant and graft; Z87.891 Personal history of nicotine dependence; Z88.1 Allergy status to other antibiotic agents; Z88.6 Allergy status to analgesic agent

== ENCOUNTER 2019-06-25 22:07 | Observation (INO) | payer OTHER ==
[~2019-06-25] VITALS: Ht 160 cm; Wt 78.3 kg
[~2019-06-25 22:07] MED LIST changes: +AZITHROMYCIN 2250 MG PO; +BENZONATATE200 MG PO; +MELOXICAM15 MG PO; +PROAIR HFA8.5 GM INH
[2019-06-25 22:08] VITALS: BP 165/75
[2019-06-25 23:25] LABS: ABSOLUTE NEUTROPHILS 4.4 thou/uL (1.4-8.2); BASOPHILS 0.9 % (0.0-2.0); EOSINOPHILS 1.1 % (0.0-3.0); HEMATOCRIT 31.2 % (37.0-47.0); HEMOGLOBIN 10.2 gm/dL (12.0-15.0); LYMPHOCYTES 29.3 % (24.0-44.0); MCH 32.7 pg (26.0-34.0); MCHC 32.9 g/dL (28.0-37.0); MCV 99.7 fL (80.0-100.0); MONOCYTES 9.1 % (1.0-8.0); PLATELET COUNT 277 thou/uL (150-400); POLYS 59.6 % (36.0-66.0); RBC 3.13 mil/uL (4.20-5.00); RDW 17.2 % (10.5-14.5); WBC 7.4 thou/uL (4.0-11.0)
[2019-06-25 23:36] LABS: ANION GAP 7 mmol/L (7-16); BUN 28 mg/dL (7-18); CALCIUM 9.4 mg/dL (8.5-10.1); CHLORIDE 102 mmol/L (98-107); CO2 30 mmol/L (21-32); CREATININE 0.9 mg/dL (0.6-1.0); GLUCOSE 108 mg/dL (74-106); POTASSIUM 4.5 mmol/L (3.5-5.1); SODIUM 139 mmol/L (136-145)
[2019-06-25 23:46] LABS: ALBUMIN 3.7 g/dL (3.4-5.0); DIRECT BILIRUBIN 0.1 mg/dL (<0.1-0.2); SGOT 18 U/L (15-37); SGPT 27 U/L (30-65); TOTAL BILIRUBIN 0.4 mg/dL (<0.1-1.0); TOTAL PROTEIN 6.9 g/dL (6.4-8.2); TROPONIN-I <0.06 ng/mL (<0.06)
[2019-06-26 03:19] VITALS: BP 128/64
[2019-06-26 03:44] VITALS: BP 128/64
[2019-06-26] MEDS ORDERED: K-DUR10 MEQ PO (04:04)
[2019-06-26] MEDS ORDERED: ONDANSETRON HCL4 M2 PO (04:04)
[2019-06-26] MEDS ORDERED: FUROSEMIDE 20 M20 MG PO (04:04)
[2019-06-26] MEDS ORDERED: NORCO 5-325 TA1 EAC1 PO (04:05)
[2019-06-26] MEDS ORDERED: HYDROXYZINE HCL25 M2 PO (04:06)
[2019-06-26] MEDS ORDERED: LIPITOR 40 MG T40 M1 PO (04:06)
[2019-06-26] MEDS ORDERED: LORAZEPAM 1 MG T1 MG PO (04:07)
--- NOTE | 2019-06-26 04:21 | NUR ---
EKG HAND DELIVERED TO [facility] AND GIVEN TO MARKIE GRIMALDO BY MYSELF.
--- NOTE | 2019-06-26 05:30 | NUR ---
admission note: she has great concerns about her bilateral leg pain. katy the Right leg. she is having constant pain to the lower extremities. she wants and MRI, she wants hydrocodone and she wants to have all of her concerns addressed this admission. she tells me that she had a cardiac stress test on 06/20/19 at [facility] and that this test was negative. she came here because it is close to her apartment. she lives at home with her son, he is not here tonight. careplan started.
[2019-06-26 07:39] VITALS: BP 142/73
--- NOTE | 2019-06-26 08:12 | EKG ---
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 : 1945 Requested By: Valarie Cantrell Order Number: [id number] MD: Valdemar Godinez Measurements Intervals [place] Rate: 97 P: 48 WI: 151 QRS: -16 QRSD: 85 T: 13 QT: 346 QTc: 440 Interpretive Statements Sinus rhythm Early R-wave progression Compared to ECG 04/28/2019 10:03:33 No significant changes Electronically Signed On 06-26-2019 8:11:00 RESEARCH ANALYST by Valdemar Godinez [email or web address] <ELECTRONICALLY SIGNED> By: Valdemar Goidnez MD, [facility] 06/26/19810 07 07 Valdemar Godinez MD, [facility] /EPI
--- NOTE | 2019-06-26 09:41 | NUR ---
PT CARE ASSUMED AT 0700, PT ALERT AND ORIENTED X4, DENIES ANY PAIN AT THE MOMENT UNLESS WITH MOVEMENT. PT DENIES ANY COUGH, NAUSEA AND VOMITING. AM ASSESSMENT COMPLETED. PT DENIES ANY NEEDS. CALL LIGHT AND TABLE IN REACH AND BED AT LOWEST LEVEL. WILL CONTINUE TO MONITOR.
--- NOTE | 2019-06-26 12:39 | NUR ---
INITIAL ASSESSMENT: SW reviewed chart and spoke with nursing and attending physician. Pt was admitted from home due to chest pain/dyspnea. Cardiology consulted. SW met with pt at bedside. Introduced role of SW. Pt is alert/orientated x 4. Pt reports she lives at home with her son. Prior to admission, pt was independent with ADLs. No use of DME. No hx of services or post-acute placement. Pt's PCP is Dr. Mikayla Maria at [facility]. No discharge needs identified at this time. SW is following to assist as needed with discharge planning.
--- NOTE | 2019-06-26 13:25 | 2DMMODE ---
[facility] [place] [address] 2 D/M-MODE ECHOCARDIOGRAM Name: CHELSI KRISHNAN Nanci Room #: 359-P ADM IN ..#: [id number] Admission: 06/26/19 Attend Phys: Hitesh Heml MD Discharge: Date of : 41 Report #: [id number] THIS REPORT FOR: cc: Mikayla Maria MD,Mikayla Godinez,Valdemar Chua MD [facility] ~ APPROVED REPORT Study performed: 06/26/2019 12:40:09 EXAM: Comprehensive 2D, Doppler, and color-flow Echocardiogram Patient Location: Echo lab Room #: 359 Status: routine BSA: 1.78 HR: 86 bpm BP: 142/73 mmHg Rhythm: NSR Other Information Study Quality: Good Indications Diabetes Dyspnea Chest Pain Hypertension/HDD 2D Dimensions RVDd: 32.93 mm IVSd: 9.43 (7-11mm) LVOT Diam: 20.29 (18-24mm) LVDd: 45.27 mm PWd: 9.26 (7-11mm) Ascending Ao: 29.87 (22-36mm) LVDs: 30.26 (25-40mm) Aortic Root: 30.26 mm IVC: 12.00 mm Volumes Left Atrial Volume (Systole) Single Plane 4CH: 45.40 mL Single Plane 2CH: 50.78 mL LA ESV Index: 30.00 mL/m2 Aortic Valve AoV Peak Wade.: 1.33 m/s AO Peak Gr.: 7.11 mmHg LVOT Max P.29 mmHg [facility] [address] [place] [address] 2 D/M-MODE ECHOCARDIOGRAM Name: SILVACHELSI ALEXANDER Room #: 359[facility] ..#: [id number] Admission: 06/26/19 Attend Phys: Hitesh Helm MD Discharge: Date of : 41 Report #: [id number] LVOT Max V: 0.91 m/s FERN Vmax: 2.20 cm2 Mitral Valve E/A Ratio: 0.6 MV Decel. Time: 342.03 ms MV E Max Wade.: 0.56 m/s MV A Wade.: 0.91 m/s MV PHT: 99.19 ms IVRT: 119.95 ms Pulmonary Valve PV Peak Wade.: 0.95 m/s PV Peak Gr.: 3.59 mmHg Pulmonary Vein P Vein S: 0.74 m/s P Vein A: 0.29 m/s P Vein D: 0.38 m/s P Vein A Dur.: 96.9 msec P Vein S/D Ratio: 1.95 Tricuspid Valve TR Peak Wade.: 2.86 m/s TR Peak Gr.: 32.74 mmHg PA Pressure: 38.00 mmHg Left Ventricle The left ventricle is normal size. There is normal LV segmental wall motion. There is normal left ventricular wall thickness. The left ventricular systolic function is normal. The left ventricular ejection fraction is within the normal range. LVEF is 60-65%. Mild diastolic dysfunction is present (impaired relaxation pattern). Right Ventricle The right ventricle is normal size. The right ventricular systolic function is normal. Atria The left atrium size is normal. The right atrium size is normal. Aortic Valve The aortic valve is normal in structure. No aortic regurgitation is present. There is no aortic valvular stenosis. Mitral Valve The mitral valve is normal in structure. Trace to mild mitral [facility] [address] [place] [address] 2 D/M-MODE ECHOCARDIOGRAM Name: CHELSI KRISHNAN Room #: 359-P ADM IN ..#: [id number] Admission: 06/26/19 Attend Phys: Hitesh Helm MD Discharge: Date of : 41 Report #: [id number] regurgitation. No evidence of mitral valve stenosis. Tricuspid Valve The tricuspid valve is normal in structure. There is mild tricuspid regurgitation. Estimated PAP 38 mmHg. There is mild pulmonary hypertension. Pulmonic Valve The pulmonary valve is normal in structure. There is no pulmonic valvular regurgitation. Great Vessels The aortic root is normal in size. IVC is normal in size and collapses >50% with inspiration. Pericardium There is no pericardial effusion. <Conclusion> The left ventricular systolic function is normal. There is normal LV segmental wall motion. LVEF is 60-65%. Mild diastolic dysfunction The aortic valve is normal in structure. No aortic regurgitation or stenosis. The mitral valve is normal in structure. Trace to mild mitral regurgitation. There is mild tricuspid regurgitation. Estimated pulmonary artery pressure of 38 mmHg. There is no pericardial effusion. <ELECTRONICALLY SIGNED> By: Valdemar Godinez MD, FACC 06/26/19 1324 1324 1324 Valdemar Godinez MD, FACC /INF
[2019-06-26 16:57] VITALS: BP 121/69
[2019-06-26 19:26] VITALS: BP 118/68
[2019-06-27 04:08] VITALS: BP 115/63
--- NOTE | 2019-06-27 04:44 | NUR ---
Pt. requested for mag citrate to help move her bowels. RADIATOR TESTER notified and order obtained. No bm yet yet this shift but stated feels like it's starting to work. Also requested anxiety med , lorazepam given at HS with good result. She slept fair during the night. Denies any pain or chest tightness. Making progress towards care plan goals.
[2019-06-27 04:51] LABS: ANION GAP 7 mmol/L (7-16); BUN 22 mg/dL (7-18); CALCIUM 9.3 mg/dL (8.5-10.1); CHLORIDE 106 mmol/L (98-107); CO2 29 mmol/L (21-32); CREATININE 0.7 mg/dL (0.6-1.0); GLUCOSE 97 mg/dL (74-106); POTASSIUM 4.5 mmol/L (3.5-5.1); SODIUM 142 mmol/L (136-145); TROPONIN-I <0.06 ng/mL (<0.06)
--- NOTE | 2019-06-27 07:52 | NUR ---
0715 Report received from Monika ADEN patient is resting quietly in bed at this time. No complaints or concerns voiced.
[2019-06-27 07:56] VITALS: BP 110/57
[2019-06-27 12:58] VITALS: BP 110/57
--- NOTE | 2019-06-27 13:21 | NUR ---
Patient discharged to home discharge instructions gone over with patient including home medications and follow up appointment. Belongings with patient as she left with the volunteer. Vebal and written understanding of instructions.
--- NOTE | 2019-06-27 16:06 | NUR ---
DISCHARGE NOTE: KRISS reviewed chart and spoke with nursing and attending physician. Pt is medically stable for discharge home today. No discharge needs identified. Pt's family to provide transportation home. Case closed.
== END 2019-06-27 13:37 | disposition home or self-care (01) ==
LOC: ER 22:07 → 3W 06-26 03:29 → EROBS 06-26 03:29 → 3W 06-26 04:19 → ENTRNSPT 06-27 13:08 → EDTRNSPTSTS 06-27 13:23 → 3W 06-27 13:37
PROVIDERS: Emergency Medicine; Nurse Practitioner Family; ADMIT Hospitalist
DX: R07.89 Other chest pain (principal); I10 Essential (primary) hypertension; E11.9 Type 2 diabetes mellitus without complications; E78.5 Hyperlipidemia, unspecified; M47.816 Spondylosis without myelopathy or radiculopathy, lumbar region; G89.29 Other chronic pain; F41.9 Anxiety disorder, unspecified; K21.9 Gastro-esophageal reflux disease without esophagitis
CPT/HCPCS: 10879

== ENCOUNTER 2019-09-16 06:44 | Emergency (ER) | payer OTHER ==
[~2019-09-16] VITALS: Ht 160 cm; Wt 79.4 kg
[~2019-09-16 06:44] MED LIST changes: +FUROSEMIDE 20 M20 MG PO; +HYDROXYZINE HCL25 M2 PO; +K-DUR10 MEQ PO; +LIPITOR 40 MG T40 M1 PO; +LORAZEPAM 1 MG T1 MG PO; +NORCO 5-325 TA1 EAC1 PO; +ONDANSETRON HCL4 M2 PO
[2019-09-16 07:20] LABS: URINE BILIRUBIN NEGATIVE (Negative); URINE BLOOD 2+ (Negative); URINE CLARITY CLEAR; URINE COLOR YELLOW; URINE GLUCOSE-RANDOM* NEGATIVE (Negative); URINE KETONES NEGATIVE (Negative); URINE LEUKOCYTES-REFLEX NEGATIVE (Negative); URINE NITRITE-REFLEX NEGATIVE (Negative); URINE PROTEIN (DIPSTICK) 1+ (Negative); URINE UROBILINOGEN 0.2 E.U./dl (0.2-1.0)
[2019-09-16 07:27] LABS: CRYSTALS None Seen /LPF (None Seen); SQUAMOUS 0-3 Few /LPF (0-3); URINE RBC 0-2 Rare /HPF (0-2)
[2019-09-16 07:28] LABS: BACTERIA-REFLEX 1-9 Few /HPF (None Seen); CASTS None Seen /LPF (None Seen); URINE WBC-REFLEX None Seen /HPF (0-5)
[2019-09-16 07:53] LABS: HEMOGLOBIN 10.2 gm/dL (12.0-15.0); MCH 33.3 pg (26.0-34.0); RBC 3.06 mil/uL (4.20-5.00); RDW 15.5 % (10.5-14.5); WBC 6.2 thou/uL (4.0-11.0)
[2019-09-16 08:05] LABS: CALCIUM 9.4 mg/dL (8.5-10.1); CREATININE 0.8 mg/dL (0.6-1.0); POTASSIUM 3.6 mmol/L (3.5-5.1)
[2019-09-16 08:10] VITALS: BP 150/78
== END 2019-09-16 08:10 | disposition home or self-care (01) ==
LOC: ER 06:44
PROVIDERS: Emergency Medicine
DX: Z71.1 Person with feared health complaint in whom no diagnosis is made (principal); E78.5 Hyperlipidemia, unspecified; K21.9 Gastro-esophageal reflux disease without esophagitis; I10 Essential (primary) hypertension; M19.90 Unspecified osteoarthritis, unspecified site; Z90.89 Acquired absence of other organs; Z98.61 Coronary angioplasty status; Z98.890 Other specified postprocedural states; Z79.899 Other long term (current) drug therapy; Z79.82 Long term (current) use of aspirin; Z88.5 Allergy status to narcotic agent; Z88.1 Allergy status to other antibiotic agents; Z87.891 Personal history of nicotine dependence